=== PATIENT | female | born 1945 | race Caucasian/White ===

== ENCOUNTER 2017-07-28 20:51 | Inpatient (IN) | payer MEDICARE ==
[~2017-07-28 20:51] MED LIST: ISOVUE-370 76%-LOCM 1 ML ONE
[2017-07-28 21:28] LABS: #Basophils 0.1 thou/uL (0.0-0.2); #Eosinphils 0.3 thou/uL (0.0-0.7); #Lymphocytes 1.5 thou/uL (1.20-3.40); #Monocytes 0.9 thou/uL (0.11-0.59); #Neutrophils 13.1 thou/uL (1.40-6.50); %Basophils 0.4 % (0.0-1.0); %Eosinophils 2.2 % (0.0-10.0); %Lymphocytes 9.4 % (21.0-51.0); %Monocytes 5.7 % (0.0-10.0); Hematocrit 36.9 % (36.0-47.0); Mean Platelet Volume 8.4 fL (7.4-10.4); Red Blood Cell (RBC) Count 4.24 mill/uL (4.20-5.40); White Blood Cell (WBC) Count 15.9 thou/uL (4.8-10.8)
--- NOTE | 2017-07-28 21:33 | RAD ---
CHEST ONE VIEW: 07/28/17 HISTORY: 72-year-old female with chest pain. Borderline cardiomegaly. Postop midline sternotomy. Atherosclerosis of the aorta. Mild increased line ar and interstitial markings. IMPRESSION: No significant acute intrathoracic disease. Borderline cardiomegaly. Mild increased markings bilatera lly, probably chronic. POS: [facility]
[2017-07-28 21:35] LABS: PTT 25.9 SEC (22.9-36.1); Prothrombin Time 14.3 SEC (12.0-14.7)
[2017-07-28 21:48] LABS: ALT (SGPT) 45 U/L (8-55); AST (SGOT) 53 U/L (5-34); Alkaline Phosphatase 52 U/L (40-150); Anion Gap 17 mmol/L (10-20); BUN (Urea Nitrogen) 15 mg/dL (9.8-20.1); CK (CPK) 87 U/L (29-168); Calc. Creatinine Clearance 0 mL/min (70-130); Calcium 9.8 mg/dL (7.8-10.44); Carbon Dioxide 25 mmol/L (23-31); Chloride 91 mmol/L (98-107); Estimated GFR-MDRD 38; Globulin 3.8 g/dL (2.4-3.5); Lipase 651 U/L (8-78); Protein, Total 8.2 g/dL (6.0-8.3)
[2017-07-28 21:52] LABS: Troponin I 0.014 ng/mL (< 0.028)
[2017-07-28] MEDS ORDERED: Morphine 4 MG/ML VIAL ONE (23:06)
[2017-07-28] MEDS ORDERED: Ondansetron HCl/PF 4 MG/2 ML Vial ONE (23:06)
[2017-07-28] MEDS ORDERED: Metoprolol Tartrate 5 MG/5 ML VIAL ONE (23:37)
--- NOTE | 2017-07-28 23:42 | CT ---
ABDOMEN AND PELVIC CT WITH IV CONTRAST: 07/28/17 HISTORY: 72-year-old female with chest pain and abdominal pain. The lung bases are clear. There is some fatty change in the liver. There appeared to be multiple gall stones in the gallbladder. The gallbladder is upper range of normal size but no pericholecystic fluid or fat stranding. Common bile duct measures up to approximately 0.8 cm which is minimally dilated wi thout intrahepatic ductal dilatation. There is some minimal fat stranding around the region of the he ad of the pancreas and also in the upper central mesentery, nonspecific, but this could represent logan e changes related to acute pancreatitis. Correlation with serum amylase and lipase levels is suggeste d. There is an approximately 2.7 cm diameter left adrenal mass which is indeterminate from this study . Spleen is unremarkable. There is no renal calculus or acute obstruction. No CT evidence for acut e appendicitis. Small bilateral fat containing inguinal hernias. IMPRESSION: Multiple gallstones with borderline distended gallbladder but no evidence for gallbladder wall thicke zaire or pericholecystic fat stranding. There is some minimal fat stranding around the region of the h ead of the pancreas and in the central mesentery, nonspecific but the possibility of acute pancreatit is is a consideration and suggestion for correlation with pancreatic enzymes. Left adrenal mass. None mergent followup CT scan with adrenal mass protocol with and without IV contrast including delayed im aging might be of benefit. No renal calculus or acute obstruction. No CT evidence for acute append icitis. Small fat containing inguinal hernias. POS: [facility]
[2017-07-29] MEDS ORDERED: hydrALAZINE 20 MG/ML VIAL ONE (00:54)
[2017-07-29] MEDS ORDERED: Pantoprazole 40 MG VIAL ONE (00:54)
[2017-07-29] MEDS ORDERED: Acetaminophen 325 MG TAB PO PRN (03:31)
[2017-07-29] MEDS ORDERED: Ondansetron HCl/PF 4 MG/2 ML Vial IVP PRN ×2 (03:31→20:37)
[2017-07-29] MEDS ORDERED: HumaLOG 300 UNITS/3 ML VIAL SC PRN (03:31)
[2017-07-29] MEDS ORDERED: Dextrose 50% Abboject 50 ML SYRINGE SLOW IVP PRN (03:31)
[2017-07-29] MEDS ORDERED: Dextrose 5% in Water 1,000 ML IV PRN (03:31)
[2017-07-29] MEDS ORDERED: HYDROcodone/Acetaminophen 10/325 mg Tablet PO PRN (03:31)
[2017-07-29] MEDS ORDERED: hydrALAZINE 20 MG/ML VIAL SLOW IVP PRN (03:31)
[2017-07-29 03:39] VITALS: BMI 31.8
[2017-07-29] MEDS ORDERED: Enoxaparin Sodium 40 MG/0.4 ML SYRINGE SC SCH (03:45)
[2017-07-29] MEDS: Sodium Chloride 0.9% 1,000 ML IV SCH ×3 (04:26→21:39)
[2017-07-29] MEDS: HYDROcodone/Acetaminophen 5/325 mg Tablet PO PRN ×2 (04:27→09:10)
--- NOTE | 2017-07-29 07:24 | HP ---
DATE OF ADMISSION: 07/29/2017 TIME OF SERVICE: 00:45 CHIEF COMPLAINT: Epigastric pain. HISTORY OF PRESENT ILLNESS: Ms. Burnett is a pleasant 72-year-old female with history of coronary alec ry disease, status post 5-vessel bypass surgery, diabetes mellitus type 2, COPD, and chronic gallston es. Patient was in normal state of health until about a week ago. She started having epigastric pain louis t seemed to radiate down into her lower abdomen into her back. She does not know if there is any ass ociation with her eating. Motion does not make it better or worse. Belching or passing gas does not help. She has had chronic constipation. Did finally have some bowel movement earlier today and aga in no relief. The only thing recently that seemed to make it better was the pain medicine they gave her in the [facility]. She does have a history of hiatal hernia. Her pain was worse with palpation of he r belly and made it hurt diffusely. She denies any other current complaints. No chest pain or shortness of breath, no nausea and vomiting. No GI bleed above or below. Workup in the emergency department included labs that showed lipase of 651, AST of 53 and an ALT of 4 5, which is above her normal baseline, CBC showed a white count of 15.9 with 82% granulocytes and a c reatinine of 1.37. Review of her labs showed her creatinine 1.37 is actually better than it was back in February at 1.82, an d her baseline appears to be somewhere around upper 1.1s to upper 1.3s. We were subsequently called for admission. The patient is currently feeling fine now. No other current complaints. PAST MEDICAL HISTORY: Include, 1. Coronary artery disease. 2. Diabetes mellitus type 2, non-insulin dependent. 3. Chronic obstructive pulmonary disease. 4. Gallstones. PAST SURGICAL HISTORY: Include, 1. Coronary artery bypass grafting x5 vessels. CABG was in 2004, 2006. 2. Hysterectomy in the 1960s. HOME MEDICATIONS: 1. Benazepril 40 mg, unsure if she takes once or twice a day. 2. Hydrochlorothiazide 50 mg, unsure if she takes once or twice a day. 3. Norvasc 5 mg, unsure if she takes once or twice a day. 4. Metoprolol tartrate 50 mg, unsure if she takes once or twice a day. 5. Fenofibrate 145 mg daily. 6. Zantac 150 mg, unsure if takes once or twice a day. 7. Metformin 500 mg, unsure if she takes it once or twice a day. 8. Aspirin 81 mg once a day. 9. CoQ10 of 200 mg daily. 10. Vitamin D 2000 units daily. 11. Docusate 100 mg daily. 12. Align daily. 13. Melatonin 10 mg p.o. at bedtime. 14. B complex with B12. She states that she takes all of her medicines twice a day except for one. The only one written that would be normally taken once a day would be her fenofibrate and her aspirin. External medication hi story does not bring up any additional information. ALLERGIES: CODEINE with nausea and vomiting. FAMILY HISTORY: Negative for clotting or bleeding disorder. No immune dysfunction. She said she co mes from a long line of people with "gallbladder problems." SOCIAL HISTORY: Negative for habits x3. We did discuss advance directives. At this time, she does want to be a FULL CODE. REVIEW OF SYSTEMS: A 10-point review of systems was performed, negative for all other systems except as stated as per HPI. PHYSICAL EXAMINATION: VITAL SIGNS: Temperature is 99.4, pulse 66, blood pressure 191/116 respiratory rate 18, satting 99% on room air. Currently, she has 0/10 pain. GENERAL: She is awake. She is alert. She is oriented x3. She is an obese, elderly white female wh o appears to be in no distress. HEENT: Normocephalic and atraumatic. Pupils equal, reactive bilaterally, mucous membranes are moist . She has no visible lesions. No thrush. NECK: Supple, without lymphadenopathy, JVD, or thyromegaly. She has normal carotid upstroke without bruits. LUNGS: Clear. She has good air movement. Symmetrical chest excursion. No wheezes, rales or rhonch i. No prolonged expiratory phase. CARDIOVASCULAR: She has normal S1, S2. No S3 or S4. I do not appreciate any murmurs. ABDOMEN: Soft. It is tender particularly in the right upper quadrant, but slightly diffusely tender all over. There is no rebound, rigidity or guarding. She has normoactive bowel sounds present in a ll 4 quadrants. EXTREMITIES: Show no cyanosis or clubbing. Trace pedal edema. She has 1+ peripheral pulses in both dorsalis pedis and posterior tibial arteries bilaterally. SKIN: Warm, moist and well perfused without any other rashes or lesions. NEUROLOGIC: Cranial nerves II-XII grossly intact. She has 5/5 strength, normal speech, and no focal deficits. MUSCULOSKELETAL: Normal to inspection. She has no inflamed joints. No palpable effusions. LABORATORY DATA: Sodium is 129, potassium 3.7, chloride 91, bicarbonate 25, BUN 15, creatinine 1.37, calcium 9.8, and glucose of 258. Liver functions and alkaline phosphatase normal at 52, AST elevate d at 53, ALT high normal at 45. Just a few months ago these were in the middle of normal range. Her lipase was elevated at 651. CK was normal, 87. MB of 1.7. Troponin I 0.014. INR is 1.1 and BNP i s normal. CBC showed a white count of 15.0 with 82% granulocytes, no bands. Hemoglobin 12.7, hematocrit of 36. 9, platelet count 224,000. Chest x-ray was negative which showed chronic interstitial changes. CT scan of the abdomen and pelvis showed multiple gallstones present in the gallbladder, but no gallb ladder wall thickening or pericholecystic fluid. There was minimal stranding at the head of the panc reas that could be consistent with pancreatitis in the right clinical setting in correlation with lab s was recommended and a 2 cm left adrenal mass. ASSESSMENT AND PLAN: 1. Epigastric pain radiating down the abdomen to the back. The patient has an elevated lipase of 65 1. Placing in observation today for acute pancreatitis. Unsure if this is secondary to hypertriglyc eridemia or elevated sugars or obstruction. Based on the CAT scan, there is no current obstruction e vident. Certainly she could have passed a gallstone especially considering she is feeling better now . We will continue IV fluids. We will recheck lipase in the morning. We will put on a low fat, lou ar liquid diet, and we will get an ultrasound to make sure there are no retained stones in the common bile duct. She says she has had a "nonfunctioning gallbladder for some time. Certainly could get a HIDA scan to see if her symptoms are reproduced. She is not interested leaving the hospital for jak g as she has friend who is actually dying on hospice and wants to see them before they go. We will d maria de jesus to the treatment team in the morning. 2. Diabetes mellitus type 2, glucose currently 258. We will use sliding scale insulin. We will fol low up results. 3. History of chronic obstructive pulmonary disease, no acute exacerbation. She is not in any respi ratory medications. We will have nebs available as needed. 4. Hypertension: Blood pressure 191/114. She did not take her evening medications. We will have p. r.n. medications available if her blood pressure gets too high. I will go ahead and start her mornin g medications now. We will reevaluate through her stay.
[2017-07-29] MEDS ORDERED: Fentanyl 100 MCG/2 ML VIAL SLOW IVP PRN ×2 (08:50→16:45)
[2017-07-29] MEDS ORDERED: Famotidine/PF 20 mg/2ml Vial SLOW IVP SCH (09:00)
[2017-07-29] MEDS ORDERED: Hydrochlorothiazide 25 MG TAB PO SCH (09:00)
[2017-07-29] MEDS ORDERED: Amlodipine 5 MG TAB PO SCH (09:00)
[2017-07-29] MEDS ORDERED: Metoprolol Tartrate 50 MG TAB PO SCH (09:00)
[2017-07-29] MEDS ORDERED: Propofol 200 MG/20 ML VIAL ONE (09:41)
[2017-07-29] MEDS ORDERED: Labetalol HCl 100 MG/20 ML VIAL ONE (09:41)
[2017-07-29] MEDS ORDERED: Lidocaine 1% PF 5 ML VIAL ONE (09:41)
[2017-07-29] MEDS ORDERED: Glycopyrrolate 0.2 MG/ML 5 ML SYRINGE ONE (09:41)
--- NOTE | 2017-07-29 10:16 | ULT ---
RIGHT UPPER QUADRANT ULTRASOUND: Date: 07/29/17 HISTORY: Elevated lipase, abdominal pain. Rule out common bile duct stones. TECHNIQUE: Multiple longitudinal and transverse images of the right upper quadrant of the abdomen obtained using a multihertz curvilinear transducer. Real-time and color flow images demonstrate fibrofatty changes seen of the liver. The common bile duct is markedly dilated, measuring 1.2 cm. No definite evidence o f intrahepatic biliary dilatation is seen. The gallbladder is distended with some gallbladder wall th ickening and pericholecystic fluid. There appear to be numerous filling defects with shadowing in the gallbladder compatible with cholelithiasis. IMPRESSION: Abnormal common bile duct dilatation concerning for choledocholithiasis. Some gallbladder wall thicke zaire and distention is seen concerning for cholecystitis. There also appears to be cholelithiasis pre sent. POS: [facility]
[2017-07-29] MEDS ORDERED: Piperacillin/Tazobactam 3.375 GM in Sodium Chloride 0.9% 100 ML IVPB SCH ×2 (14:00→18:00)
[2017-07-29] MEDS ORDERED: Scopolamine 1.5 mg/72 hour Patch TD SCH (14:30)
[2017-07-29] MEDS ORDERED: Acetaminophen 1,000 MG in Premix Bag 1 BAG IVPB SCH (14:45)
[2017-07-29] MEDS ORDERED: Ketorolac Tromethamine 30 MG/ML VIAL IVP SCH (14:45)
--- NOTE | 2017-07-29 15:36 | HP ---
HISTORY OF PRESENT ILLNESS: Leann Burnett is a 72-year-old female with many-year history of episodi c epigastric right upper quadrant pain and known gallstones. She states that she has been in [facility]. On many occasions, has been told that she has gallstones and has been told she has a nonfu nctional gallbladder, continued to have frequent admissions, but never told to have her gallbladder o ut. She presents on this occasion with epigastric pain, right upper quadrant pain, back radiation, n ausea, seen in the emergency room yesterday, and CAT scan of abdomen and pelvis revealed dilated bile duct 8-mm, nondilated intrahepatic ducts, and gallstones, and inflammatory changes consistent with p ancreatitis. She was admitted to the Medical Service this morning. Ultrasound was obtained verifying gallstones and dilated bile duct. Liver function tests remained normal. Dr. Harrington has been con sulted in addition. She states her pain is better since admission. She has received intravenous flu ids and analgesics. ALLERGIES: CODEINE. TOBACCO: None. ALCOHOL: None. HOME MEDICATIONS: Vitamin B complex, melatonin at bedtime, Colace daily, cholecalciferol daily, CoQ1 0 daily, aspirin daily, metformin 500 daily, ranitidine 150 daily, fenofibrate 145 mg daily, metoprol ol 50 mg b.i.d., hydrochlorothiazide 50 daily, amlodipine 5 mg daily. PAST MEDICAL HISTORY: Diabetes mellitus, type 2, non-insulin dependent; hypertension; and elevated c holesterol. PAST SURGICAL HISTORY: Coronary artery bypass grafting in [place], 11 years ago. She reports never h aving had a known myocardial infarction, but told she might have had a silent one. Postoperative cou rse complicated by MRSA and secondary wound healing. Patient follows Dr. Mathews and last saw him i n end of 2015, reports some normal cardiac stress test. She is asymptomatic from cardiac standpoint. Total abdominal hysterectomy and bilateral salpingo-oophorectomy, lens implants, appendectomy. REVIEW OF SYSTEMS: Otherwise noncontributory. She had a colonoscopy about 4 years ago at [facility]. Review of systems 10-point noncontributory. No cardiac symptoms. No chest pa in, no chest pressure. PHYSICAL EXAMINATION: VITAL SIGNS: Height 5 feet 4 inches, weight 185 pounds, 31 BMI, temperature 98 degrees, heart rate 8 3, blood pressure 167/79. HEAD, EYES, EARS, NOSE, AND THROAT: Unremarkable. Sclerae nonicteric. SKIN: Nonjaundiced. No lymphadenopathy in neck, axillae, or groins. LUNGS: Clear to auscultation. CARDIAC: Regular rate and rhythm without murmur or gallop. ABDOMEN: Soft, tenderness in right upper quadrant with mild guarding. EXTREMITIES: Unremarkable. LABORATORY DATA: Laboratories as noted above. Sodium 129, potassium 3.7, BUN 15, creatinine 1.37. Liver function tests are normal except for AST of mild elevation of 53, creatinine is mildly elevated at 1.37. Lipase 651 when checked this morning. Hemoglobin 12 and white count 15.9. ASSESSMENT AND PLAN: 1. Biliary pancreatitis, long past history of cholelithiasis. I would recommend laparoscopic cholec ystectomy and cholangiograms and I have discussed with Dr. Harrington, and if necessary, based on chol angiogram, she may need endoscopic retrograde cholangiopancreatography under the same anesthetic. Ri sk of infection, bleeding, visceral and biliary injury, reopen operation discussed. She consents. 2. Coronary artery disease, stable. I am sure that she had a preoperative EKG. 3. Diabetes mellitus. 4. Hypertension. 5. Elevated cholesterol. 6. Overweight.
[2017-07-29] MEDS ORDERED: cloNIDine 0.1 MG TAB PO PRN (16:45)
[2017-07-29] MEDS ORDERED: Sodium Chloride 0.9% 1,000 ML IV SCH ×2 (16:46→20:37)
[2017-07-29] MEDS ORDERED: Bupivacaine/Epinephrine 0.25% 30 ML VIAL ONE (18:00)
[2017-07-29] MEDS ORDERED: Iothalamate Meglumine 60% 50 ML VIAL FS ONE (18:08)
[2017-07-29] MEDS ORDERED: Fentanyl 100 MCG/2 ML VIAL ONE (18:28)
[2017-07-29] MEDS ORDERED: Ondansetron ODT 8 MG TAB PO PRN (20:37)
[2017-07-29] MEDS ORDERED: Ondansetron ODT 4 MG TAB PO PRN (20:37)
[2017-07-29] MEDS ORDERED: traMADol HCl 50 MG TAB PO PRN (20:37)
[2017-07-29] MEDS ORDERED: Ondansetron ODT 8 MG TAB SL PRN (20:37)
[2017-07-29] MEDS ORDERED: Ibuprofen 200 MG TAB PO PRN (20:37)
[2017-07-29] MEDS ORDERED: Acetaminophen 500 MG TAB PO PRN (20:37)
[2017-07-29] MEDS ORDERED: Ondansetron HCl 4 MG/5 ML UDCUP PO PRN ×2 (20:37)
[2017-07-29] MEDS ORDERED: Melatonin 3 MG TAB PO SCH (21:00)
[2017-07-29] MEDS: traMADol HCl 50 MG TAB PO PRN (22:01)
[2017-07-29] MEDS: Metoprolol Tartrate 50 MG TAB PO SCH (22:03)
--- NOTE | 2017-07-29 23:49 | CON ---
DATE OF CONSULTATION: 07/29/2017 REFERRING PHYSICIAN: Dr. Claudio Martinez. REASON FOR CONSULTATION: Acute pancreatitis. HISTORY OF PRESENT ILLNESS: Ms. Leann Burnett is a very pleasant 72-year-old female seen in the ER with abdominal pain and nausea. The symptoms were sudden onset. The pain was over the epigastric area with nausea. The pain was actually localized. Today, the abdominal pain has resolved, but she has more back pain. The patient has had chronic back pain off and on over the years. The back pain what she is having is different from the back pain she had before. She had no more nausea and no more vomiting. She is actually feeling better and abdominal pain is almost resolved. The patient has had no similar episodes in the past. There is no past history of cholecystitis. No past history of any pancreatitis. The patient is known to have gallstones from before surgery as per the patient. The patient is known to have hiatus hernia and does have occasional reflux symptoms. Her reflux symptoms consist of heartburn and occasional regurgitation. There is no history of painful swallowing. Her bowel movements are usually constipated. She has a BM every fourth or fifth day. Her fiber intake is very minimal. She had no hematochezia or any melena. The patient had a colonoscopy about 4 years ago that was told to be negative. She has had an abdominal CAT scan, abdominal sonogram and also routine blood test. Serum lipase markedly elevated. Her liver function tests are slightly high. The abdominal sonogram shows multiple gallstones and the common bile duct measures approximately 1.2 cm. No other relevant history. ALLERGIES: CODEINE. SOCIAL HISTORY: The patient is . She quit smoking about 11 years ago and had bypass surgery. She seldom drinks alcohol. MEDICAL ILLNESSES: 1. Type 2 diabetes mellitus. 2. Chronic obstructive pulmonary disease. 3. History of gallstones. 4. Coronary artery disease, stable, status post bypass graft 11 years ago in [place]. 5. Obesity. 6. Chronic back pain. MEDICATIONS: 1. Hydrochlorothiazide 50 mg once a day. 2. Norvasc 5 mg once a day. 3. Metoprolol 50 mg once or twice daily. 4. Fenofibrate 145 mg once a day. 5. Zantac 150 mg twice a day. 6. Metformin 500 mg twice a day. 7. Aspirin 81 once a day. 8. CoQ10 of 200 mg once a day. 9. Vitamin D3. 10. Docusate. 11. She also takes benazepril 40 once a day and B complex. FAMILY HISTORY: Mother had gallbladder surgery, but he had multiple problems including heart disease, diabetes and hypertension. She gives history of grandmother having had liver cancer. REVIEW OF SYSTEMS: A 10-point system reviewed. ENVELOPE CUTTER: No chronic headache, no dizziness, no syncope, no TIA, no seizure disorder. Constitutional: No history of fever, no night sweats, no weight loss. She has good appetite. Respiratory system: No history of chronic cough, hemoptysis, dyspnea. Cardiovascular system: No chest pain, no palpitation, no orthopnea or PND. Gastrointestinal: As in the history of present illness. Genitourinary: No dysuria, hematuria or frequency of urination. Musculoskeletal: History of back pain. Neurologic: Unremarkable. Psychiatric: Unremarkable. Endocrine: Unremarkable. PHYSICAL EXAMINATION: GENERAL: The patient is obese, appears very comfortable. She is awake, alert, oriented to time, place and person. VITAL SIGNS: Afebrile. Temperature 98 degrees Fahrenheit, pulse is 83, blood pressure 167/79. HEENT: Conjunctivae clear. NECK: Supple. No adenitis or thyromegaly noted. CARDIOVASCULAR: First and second heart sounds normal. LUNGS: Clear to auscultation. ABDOMEN: Soft to palpate. Abdomen is tender over the epigastric area on deep palpation. Overall, the exam is very benign. There is no rebound or guarding. No organomegaly or masses. Bowel sounds are normal. EXTREMITIES: Reveal no edema. LABORATORY DATA: Admitting labs: CBC: WBC 15,900, hemoglobin 12.7, hematocrit 36.9, MCV 87, platelet count 224,000, polymorphs 82, lymphocytes 9, monocytes 5. Serum chemistries: Sodium is 129, potassium 3.7, chloride 91, bicarbonate is 25, BUN is 15, creatinine 1.37, glucose 258, calcium 9.8, bilirubin 1, AST is slightly high at 53, ALT 45, alkaline phosphatase 52. Troponin 0.014. CPK-MB 1.7, albumin is 4.4. An abdominal sonogram shows multiple gallstones and CBD at upper limit of normal at 1.27. CAT scan again showed gallstones and also peripancreatic edema. CLINICAL IMPRESSION: 1. Gallstone pancreatitis. Liver function tests are basically normal. She most likely has passed a stone down into the duodenum. It is possible this could have retained stone. 2. Hypertension. 3. Diabetes mellitus. 4. Chronic obstructive pulmonary disease. 5. Status post coronary artery bypass graft. RECOMMENDATIONS: Surgical input. I believe she should undergo a laparoscopic cholecystectomy with cholangiogram. If the cholangiogram is abnormal, then we will plan for ERCP. ALEJANDRO
--- NOTE | 2017-07-30 03:23 | OP ---
DATE OF PROCEDURE: 07/29/2017 PREOPERATIVE DIAGNOSIS: Biliary pancreatitis. POSTOPERATIVE DIAGNOSIS: Biliary pancreatitis. PROCEDURE: Laparoscopic video cholecystectomy. SURGEON: Dr. Ronnie Figueroa ANESTHESIA: General. Local 0.5% Marcaine with epinephrine, 30 mL. PROCEDURE: Laparoscopic video cholecystectomy. Normal cholangiogram. Fluoroscopy used, dilated com mon bile duct without filling defects, free flow of contrast into the duodenum. PROCEDURE IN DETAIL: The patient taken to the operating room where under general anesthesia, abdomen was prepared with ChloraPrep, draped in routine fashion. Local anesthetic infiltrated into skin and subcutaneous tissue about each port site. Infraumbilical incision made and pneumoperitoneum to 15 m mHg obtained with the Veress needle, replacing it with a 5 port and laparoscope inserted. Right subx iphoid incision made and 11 port placed. Right subcostal incision made mid clavicular anterior axill matilda lines and 5 ports placed. Fundus of gallbladder grasped and reflected cephalad. Liver was fatty and bulky. Infundibulum grasped and reflected laterally. Cystic artery and duct dissected free. C ritical view obtained with pericholecystic dissection to 2/3 cystic plate, cystic artery, singly clip ped on the gallbladder side. Opening made in the cystic duct and cholangiocath inserted and cholangi ogram was obtained revealing free flow of contrast into the duodenum without filling defects and a di lated common hepatic, common bile, left and right hepatic ducts. Cholangiocath removed. Cystic duct stump doubly clipped. Cystic artery double clipped proximally. Cystic artery and duct divided. Th e gallbladder dissected free from the liver bed obtaining good hemostasis prior to division of final peritoneal attachments. Gallbladder and contents removed. The patient was given one of the small st ones. Good hemostasis ensured. Irrigant and pneumoperitoneum evacuated. All instruments removed an d all skin incisions approximated with interrupted subdermal 4-0 Monocryl and DermaGlue applied.
[2017-07-30 05:26] LABS: #Eosinphils 0.2 thou/uL (0.0-0.7); #Lymphocytes 1.3 thou/uL (1.20-3.40); #Monocytes 0.5 thou/uL (0.11-0.59); #Neutrophils 6.3 thou/uL (1.40-6.50); %Basophils 0.5 % (0.0-1.0); %Eosinophils 2.8 % (0.0-10.0); %Lymphocytes 15.7 % (21.0-51.0); %Monocytes 5.6 % (0.0-10.0); Hematocrit 28.9 % (36.0-47.0); Mean Platelet Volume 8.4 fL (7.4-10.4); Red Blood Cell (RBC) Count 3.25 mill/uL (4.20-5.40); White Blood Cell (WBC) Count 8.4 thou/uL (4.8-10.8)
[2017-07-30 05:49] LABS: ALT (SGPT) 64 U/L (8-55); AST (SGOT) 84 U/L (5-34); Alkaline Phosphatase 33 U/L (40-150); Anion Gap 12 mmol/L (10-20); BUN (Urea Nitrogen) 17 mg/dL (9.8-20.1); Bilirubin, Total 0.4 mg/dL (0.2-1.2); Calc. Creatinine Clearance 55 mL/min (70-130); Calcium 8.4 mg/dL (7.8-10.44); Carbon Dioxide 23 mmol/L (23-31); Chloride 101 mmol/L (98-107); Estimated GFR-MDRD 42; Globulin 2.7 g/dL (2.4-3.5); Lipase 20 U/L (8-78); Magnesium 1.7 mg/dL (1.6-2.6); Phosphorus 3.9 mg/dL (2.3-4.7); Protein, Total 5.9 g/dL (6.0-8.3)
[2017-07-30] MEDS: Sodium Chloride 0.9% 1,000 ML IV SCH ×2 (06:38→06:39)
[2017-07-30] MEDS: traMADol HCl 50 MG TAB PO PRN (06:53)
[2017-07-30] MEDS ORDERED: metFORMIN 500 MG TAB PO SCH (08:00)
[2017-07-30] MEDS ORDERED: Calcium Carbonate + Vit D 1 TAB PO SCH (08:00)
--- NOTE | 2017-07-30 08:40 | PRG ---
DATE OF SERVICE: 07/30/2017 Ms. Burnett is doing well today. She is not having nausea or vomiting. She is having minimal pain. VITAL SIGNS: Temperature 97.8 degrees, 70, 145/65. LABORATORY: White count 8, hemoglobin 9.7. Sodium 132, potassium 3.7, BUN 17, creatinine 1.25, whic h is improved relative to yesterday. Accu-Cheks 182 to 214, bilirubin was 0.4. AST, ALT 84 and 64 respectfully, alkaline phosphatase 33, within normal limits. Lipase 20. LUNGS: Clear to auscultation. CARDIAC: Regular rate and rhythm without murmur or gallop. ABDOMEN: Soft. Surgical wounds look good. Abdomen is nontender. EXTREMITIES: Unremarkable. ASSESSMENT AND PLAN: Biliary pancreatitis, resolving. Would plan diet as tolerated and she is okay to be discharged home today. She can follow up in my office in 2 weeks. There are no restrictions i n her activities. She can shower and bathe whenever she wants. I would recommend Tylenol and over-t he-counter ibuprofen for discomfort. I have written a prescription for Ultram should she need it.
[2017-07-30] MEDS ORDERED: Famotidine 20 MG TAB PO SCH (09:00)
[2017-07-30] MEDS ORDERED: Polyethylene Glycol 3350 17 GM Packet PO SCH (09:00)
[2017-07-30] MEDS ORDERED: Fenofibrate Nanocrystallized 145 MG TAB PO SCH (09:00)
[2017-07-30] MEDS ORDERED: Enoxaparin Sodium 40 MG/0.4 ML SYRINGE SC SCH (09:00)
[2017-07-30] MEDS ORDERED: Docusate 100 MG CAP PO SCH (09:00)
[2017-07-30] MEDS ORDERED: Hydrochlorothiazide 25 MG TAB PO SCH (09:00)
[2017-07-30] MEDS ORDERED: Amlodipine 5 MG TAB PO SCH (09:00)
[2017-07-30] MEDS ORDERED: Ubidecarenone 50 MG CAP PO SCH (09:00)
[2017-07-30] MEDS ORDERED: Folic Acid/Vit B Comp W-C PO SCH (09:00)
[2017-07-30] MEDS: Metoprolol Tartrate 50 MG TAB PO SCH (09:08)
[2017-07-30 09:14] VITALS: BP 149/73
--- NOTE | 2017-07-30 09:44 | DIS ---
DATE OF DISCHARGE: 07/30/2017 DISCHARGE DISPOSITION: Home. FOLLOWUP: Follow up with primary care physician, Loree Jiménez in 1 week. Follow up with Dr. Figueroa as scheduled. ALLERGIES: The patient is allergic to CODEINE. The patient was seen and examined on the day of discharge, feels much better, denies any nausea and v omiting. DISCHARGE MEDICATIONS: Amlodipine 5 mg daily, aspirin 81 mg daily, benazepril 40 mg b.i.d., vitamin D3 2000 units daily, Colace 100 mg daily, fenofibrate 145 mg daily, hydrochlorothiazide 50 mg daily, melatonin 10 mg at bedtime, metformin 500 mg daily, Lopressor 50 mg b.i.d., ranitidine 150 mg daily, Coenzyme Q10 200 mg daily, vitamin B complex 1 tablet daily. INPATIENT CONSULTANTS: Gastroenterology, Dr. Harrington and General Surgery, Dr. Figueroa. INPATIENT PROCEDURES: On 07/29/2017 the patient underwent laparoscopic video cholecystectomy. Chola ngiogram was normal. There was dilated common bile duct without filling defect. BRIEF HOSPITAL COURSE: The patient is a 72-year-old female with coronary artery disease, diabetes me llitus type 2, cholelithiasis in the past, presented to the hospital with epigastric pain. Please re harshad to the history and physical dated 07/29/[address] Hathaway, for further details. The patient was admitted to the hospital with the diagnosis of acute pancreatitis. Her lipase on adm ission was 651. Right upper quadrant ultrasound was consistent with cholelithiasis with questionable cholecystitis. The patient was evaluated by GI as well as General Surgery. She underwent laparosco pic cholecystectomy yesterday. She did well overnight. She has been cleared by consultants for disc harge. FINAL DIAGNOSES: 1. Gallstone pancreatitis. 2. Suspected acute cholecystitis, status post laparoscopic cholecystectomy. 3. Coronary artery disease. 4. History of cholelithiasis. 5. Diabetes mellitus type 2. 6. Hyponatremia with a sodium of 129 on admission and 132 by discharge. Repeat labs after 1 week is recommended. 7. Diabetes mellitus type 2. 8. Hypertension. 9. Chronic obstructive pulmonary disease. 10. Obesity with a BMI of 31.8. 11. Chronic kidney disease. 11. History of vitamin D deficiency. Plan of care was discussed with the patient in detail. She stated understanding.
[2017-07-30 10:28] VITALS: TEMP 98
== END 2017-07-30 11:09 | disposition home or self-care (01) | DRG 418 ==
LOC: ERS 20:51 → 2SW 07-29 03:24 → OBSVTOIN 07-29 03:24 → T4-B 07-29 13:46
PROVIDERS: ADMIT Internal Medicine Infectious Disease; ATTEND Internal Medicine Infectious Disease
PROC: 0FT44ZZ Resection of Gallbladder, Percutaneous Endoscopic Approach (ICD-10-PCS; principal; 2017-07-29)
PROC: BF100ZZ Fluoroscopy of Bile Ducts using High Osmolar Contrast (ICD-10-PCS; 2017-07-29)
DX: K85.10 Biliary acute pancreatitis without necrosis or infection (principal); K80.00 Calculus of gallbladder with acute cholecystitis without obstruction; E11.22 Type 2 diabetes mellitus with diabetic chronic kidney disease; E87.1 Hypo-osmolality and hyponatremia; I25.10 Atherosclerotic heart disease of native coronary artery without angina pectoris; I12.9 Hypertensive chronic kidney disease with stage 1 through stage 4 chronic kidney disease, or unspecified chronic kidney disease; N18.9 Chronic kidney disease, unspecified; Z68.31 Body mass index [BMI] 31.0-31.9, adult; E66.9 Obesity, unspecified; J44.9 Chronic obstructive pulmonary disease, unspecified; E55.9 Vitamin D deficiency, unspecified; Z95.1 Presence of aortocoronary bypass graft; E78.00 Pure hypercholesterolemia, unspecified
CPT/HCPCS: 36415; 36416; 47532; 71010; 74177; 76705; 80053; 82550; 82553; 83690; 83735; 83880; 84100; 84484; 85025; 85610; 85730; 88304; 93005; 96361; 96374; 96375; C9113; J0131; J0360; J1610; J1650; J1885; J2001; J2270; J2405; J2543; J2704; J3010; J7050; Q9961; S0028

== ENCOUNTER 2017-12-05 08:08 | Outpatient (CLI) | payer MEDICARE, OTHER ==
--- NOTE | 2017-12-05 10:22 | CT ---
CT MAXILLOFACIAL NONCONTRAST: HISTORY: A 72-year-old female, status post traumatic left facial pain due to fall. FINDINGS: Complete absence of teeth. No dislocation of TMJs. Diffuse osteopenia. No fracture. No large yamini miladis. Orbits are clear. No air-fluid levels in the paranasal sinuses. No gross opacification of th e tympanomastoid cavities. 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 A 0.9 cm, round, hypodense lesion at the inferior aspect of the right basal ganglia is probable a dilated Virchow-Jb space rather than an old lacuna r infarction. IMPRESSION: 1. No fracture or large hematoma. 2. Osteopenia. 3. Edentulous jaws. 4. 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 POS: [facility]
--- NOTE | 2017-12-05 10:56 | CT ---
CT PELVIS WITHOUT CONTRAST: HISTORY: Fall. Left hip pain. COMPARISON None. TECHNIQUE: A pelvic CT is performed in the axial plane. Reformatted images are submitted for interpretation. FINDINGS: The visualized alimentary canal and mesenteric structures are unremarkable. Bilateral inguinal herni as containing mesenteric fat are noted. Mild mucosal prominence of the urinary bladder may be due to inadequate extension. The bony pelvis appears to be intact. No evidence of an inferior or superior pubic ramus fracture. Contour of the left and right femoral head are maintained. No evidence of fe moral head or femoral neck fracture. No significant joint effusion. The sacral ala are preserved. [id number], there is a slightly displaced fracture involving the a nterior left aspect of the S1 vertebral body. IMPRESSION: 1. No evidence of a left or right hip fracture. If the patient is unable to bear weight, consider M RI to exclude a possible occult fracture. 2. Left S1 vertebral body fracture. CODE T POS: RO[facility]O
== END 2017-12-05 08:09 | disposition home or self-care (01) ==
LOC: CT 08:08
PROVIDERS: ATTEND Nurse Practitioner Family
DX: S70.02XA Contusion of left hip, initial encounter (principal); S00.83XA Contusion of other part of head, initial encounter; M25.552 Pain in left hip; R30.0 Dysuria; R51 Headache; S32.10XA Unspecified fracture of sacrum, initial encounter for closed fracture; M85.80 Other specified disorders of bone density and structure, unspecified site
CPT/HCPCS: 70486; 72192

== ENCOUNTER 2021-02-12 11:21 | Inpatient (IN) | payer MEDICARE ==
[2021-02-12] MEDS ORDERED: Nitroglycerin 2% Ointment 1 INCH/1 GM Packet ONE (12:15)
[2021-02-12] MEDS ORDERED: Morphine 4 MG/ML VIAL ONE (12:15)
[2021-02-12 12:21] LABS: Anion Gap 13 mmol/L (10-20); BUN (Urea Nitrogen) 37 mg/dL (9.8-20.1); Calc. Creatinine Clearance 0 mL/min (70-130); Calcium 11.3 mg/dL (7.8-10.44); Carbon Dioxide 23 mmol/L (23-31); Chloride 105 mmol/L (98-107); Glucose 105 mg/dL (83-110); Sodium 135 mmol/L (136-145)
[2021-02-12] MEDS ORDERED: Ondansetron PF 4 MG/2 ML Vial ONE (12:22)
[2021-02-12 12:44] LABS: Troponin I 2.561 ng/mL (< 0.028)
[2021-02-12] MEDS ORDERED: Sodium Chloride 0.9% 1,000 ML IV SCH (12:45)
[2021-02-12] MEDS ORDERED: HumaLOG 300 UNITS/3 ML VIAL SC PRN (12:53)
[2021-02-12] MEDS ORDERED: Dextrose 50% Abboject 50 ML SYRINGE SLOW IVP PRN (12:53)
[2021-02-12] MEDS ORDERED: Dextrose 5% in Water 1,000 ML IV PRN (12:53)
[2021-02-12] MEDS ORDERED: Acetaminophen 325 MG TAB PO PRN (12:55)
[2021-02-12] MEDS ORDERED: Ondansetron PF 4 MG/2 ML Vial IVP PRN (12:55)
[2021-02-12] MEDS ORDERED: Amlodipine 10 MG TAB PO SCH (13:00)
[2021-02-12] MEDS ORDERED: Carvedilol 6.25 MG TAB PO SCH (13:00)
[2021-02-12] MEDS ORDERED: Sodium Bicarb 50 MEQ/50 ML Abboject 8.4% SYRINGE ONE (13:52)
[2021-02-12] MEDS ORDERED: Sodium Bicarbonate 150 MEQ in Dextrose 5% in Water 1,000 ML IV SCH (14:45)
[2021-02-12 16:22] LABS: Anion Gap 14 mmol/L (10-20); BUN (Urea Nitrogen) 32 mg/dL (9.8-20.1); Calc. Creatinine Clearance 0 mL/min (70-130); Calcium 10.2 mg/dL (7.8-10.44); Carbon Dioxide 23 mmol/L (23-31); Chloride 106 mmol/L (98-107); Glucose 142 mg/dL (83-110); Potassium 6.3 mmol/L (3.5-5.1); Sodium 137 mmol/L (136-145)
[2021-02-12 16:37] LABS: Troponin I 4.431 ng/mL (< 0.028)
[2021-02-12] MEDS ORDERED: Dextrose 50% Abboject 50 ML SYRINGE SLOW IVP SCH (17:15)
[2021-02-12] MEDS ORDERED: Insulin Regular 300 UNITS/3 ML VIAL IVP SCH (17:15)
[2021-02-12 17:40] VITALS: BMI 30.6
[2021-02-12] MEDS: Acetaminophen 325 MG TAB PO PRN (17:43)
[2021-02-12] MEDS: Carvedilol 6.25 MG TAB PO SCH (17:49)
[2021-02-12] MEDS ORDERED: Calcium Gluconate 4.6 MEQ in Sodium Chloride 0.9% 100 ML IVPB SCH (18:41)
[2021-02-12] MEDS ORDERED: Albuterol Sulfate 2.5 mg/3 ml Neb NEB SCH (18:45)
[2021-02-12] MEDS ORDERED: Furosemide 40 MG/4 ML VIAL SLOW IVP SCH (18:45)
[2021-02-12 19:14] LABS: Critical Call Chem Troponin I RESULT DECREASING; Troponin I 4.034 ng/mL (< 0.028)
[2021-02-12] MEDS ORDERED: Enoxaparin Sodium 80 MG/0.8 ML SYRINGE SC SCH (21:00)
[2021-02-12] MEDS ORDERED: Atorvastatin Calcium 40 MG TAB PO SCH (21:00)
[2021-02-12 21:16] LABS: Bilirubin Negative (Negative); Blood, Urine Negative (Negative); Clarity Clear (Clear); Glucose, Urine (Dipstick) Normal (Negative); Ketone, Urine Negative (Negative); Leukocyte 75 Leu/uL (Negative); Nitrite Negative (Negative); Protein, Urine (Dipstick) Negative (Neg-Trace); RBC/HPF 0-3 HPF (0-3); Renal Epithelial 0-3 HPF (None Seen); Specific Gravity, Urine 1.014 (1.002-1.036); Squamous Epithelial 0-3 HPF (0-3); Urobilinogen Normal mg/dL (Less than 2)
[2021-02-12 21:25] LABS: Bacteria/HPF 1+ HPF (None Seen)
[2021-02-12 21:26] LABS: Urine Culture Reflex Yes Yes
[2021-02-12 21:29] LABS: Creatinine, Urine 81.56 mg/dL (47-110)
[2021-02-12 23:41] LABS: Anion Gap 12 mmol/L (10-20); BUN (Urea Nitrogen) 33 mg/dL (9.8-20.1); Calc. Creatinine Clearance 26 mL/min (70-130); Calcium 9.2 mg/dL (7.8-10.44); Carbon Dioxide 27 mmol/L (23-31); Chloride 101 mmol/L (98-107); Glucose 102 mg/dL (83-110); Potassium 4.3 mmol/L (3.5-5.1); Sodium 136 mmol/L (136-145)
[2021-02-13 04:54] LABS: Hemoglobin A1c 5.2 % (4.0-6.0)
[2021-02-13 04:55] LABS: Band 1 % (5-11); Eosinophils 1 % (0-10); Hemoglobin 9.7 g/dL (12.0-16.0); Lymphocytes 32 % (21-51); MDiff Complete? YES; Mean Corpuscular HGB CONC 32.8 g/dL (32.0-36.0); Mean Corpuscular Hemoglobin 29.9 pg (27.0-31.0); Mean Platelet Volume 8.6 fL (7.4-10.4); Metamyelocyte 1 % (0-0); Monocytes 9 % (0-10); Neutrophil 53 % (42-75); Platelet Count 199 thou/uL (130-400); Platelet Morphology Comment Appears Adequate; RBC Distribution Width 12.8 % (11.5-14.5); Reactive Lymphocytes 1 % (0-10); Red Blood Cell (RBC) Count 3.24 mill/uL (4.20-5.40); White Blood Cell (WBC) Count 9.3 thou/uL (4.8-10.8)
[2021-02-13 05:12] LABS: Anion Gap 13 mmol/L (10-20); BUN (Urea Nitrogen) 30 mg/dL (9.8-20.1); Calc. Creatinine Clearance 26 mL/min (70-130); Calcium 8.9 mg/dL (7.8-10.44); Carbon Dioxide 29 mmol/L (23-31); Cardiac Risk 4.3 (Less than 4.5); Chloride 98 mmol/L (98-107); Cholesterol 166 mg/dl (< 200 Desired); Glucose 98 mg/dL (83-110); HDL Cholesterol 39 mg/dL (>60 Neg Risk); LDL Cholesterol, Calculated 108 mg/dL; Potassium 3.9 mmol/L (3.5-5.1); Sodium 136 mmol/L (136-145); Triglycerides 97 mg/dL (Less than 150)
[2021-02-13] MEDS ORDERED: Sodium Bicarbonate 50 MEQ in Sodium Chloride 0.45% 1,000 ML IV SCH (06:30)
[2021-02-13] MEDS: Acetaminophen 325 MG TAB PO PRN (07:56)
[2021-02-13] MEDS: Carvedilol 6.25 MG TAB PO SCH ×2 (07:56→16:20)
[2021-02-13] MEDS ORDERED: Amlodipine 10 MG TAB PO SCH (09:00)
[2021-02-13] MEDS ORDERED: Enoxaparin Sodium 30 MG/0.3 ML SYRINGE SC SCH (09:00)
[2021-02-13] MEDS ORDERED: Aspirin 325 mg Enteric Coated Tablet PO SCH (09:00)
[2021-02-13] MEDS ORDERED: Lidocaine 5% Patch TD SCH (09:30)
[2021-02-13 16:36] VITALS: BP 160/71; TEMP 98.9
[2021-02-13] MEDS ORDERED: Enoxaparin Sodium 80 MG/0.8 ML SYRINGE SC SCH (21:00)
[2021-02-13] MEDS ORDERED: Transdermal Patch Removal TOP SCH (21:30)
== END 2021-02-13 17:25 | disposition home or self-care (01) | DRG 682 ==
LOC: ERS 11:21 → ERHOLD 12:45 → 2NO 17:26
PROVIDERS: ADMIT Internal Medicine; ATTEND Family Medicine
DX: N17.9 Acute kidney failure, unspecified (principal); I21.A1 Myocardial infarction type 2; E87.2 Acidosis; I50.32 Chronic diastolic (congestive) heart failure; I13.0 Hypertensive heart and chronic kidney disease with heart failure and stage 1 through stage 4 chronic kidney disease, or unspecified chronic kidney disease; Z66 Do not resuscitate; E87.5 Hyperkalemia; E78.5 Hyperlipidemia, unspecified; Z96.1 Presence of intraocular lens; E11.22 Type 2 diabetes mellitus with diabetic chronic kidney disease; E78.00 Pure hypercholesterolemia, unspecified; G25.0 Essential tremor; E86.9 Volume depletion, unspecified; N18.32 Chronic kidney disease, stage 3b; M10.9 Gout, unspecified; D63.1 Anemia in chronic kidney disease; Z95.1 Presence of aortocoronary bypass graft; Z88.5 Allergy status to narcotic agent; Z79.899 Other long term (current) drug therapy; Z79.82 Long term (current) use of aspirin; Z79.84 Long term (current) use of oral hypoglycemic drugs; Z90.710 Acquired absence of both cervix and uterus; Z90.49 Acquired absence of other specified parts of digestive tract; Z82.49 Family history of ischemic heart disease and other diseases of the circulatory system; Z82.3 Family history of stroke
CPT/HCPCS: 36415; 36416; 76770; 80048; 80061; 81001; 82550; 82570; 83036; 84156; 84300; 84540; 85007; 85027; 87086; 93005; 93010; 93306; 96374; 96375; J1650; J1815; J1940; J2001; J2270; J2405; J3490; J7070